=== PATIENT | male | born 1965 | race Two or more races ===

== ENCOUNTER 2016-11-11 21:14 | Inpatient (IN) | payer SELFPAY ==
[2016-11-11] MEDS ORDERED: IPRATROPIUM/ALBUTEROL 3 ML DEYVIAL ONE (21:22)
--- NOTE | 2016-11-11 21:24 | EDPHY ---
H & P Time Seen by Provider: 11/11/16 21:23 HPI/ROS: Chief complaint. Shortness of breath HPI. 51-year-old male presents with shortness of breath. He has apparently had a cough for several days. He has been drinking alcohol regularly although apparently tonight he was with friends who were drinking and he was not drinking much alcohol as he was coughing. His friend notes that maybe he had a choking episode and then became much more short of breath. The patient tells me he has not had chest pain. He denies any past medical history. He says he does not take any medications. He says he is not allergic to any medications. When he got to triage he had a pulse oximeter of 36% on room air. Of course the patient was immediately brought back to room 1 ROS Constitutional. no fever/chills, no weakness Eyes. no problems with vision ENT. no sore throat, no nasal drainage Cardiovascular. no chest pain Respiratory. Shortness of breath and cough Abdominal. no abdominal pain, no nausea/vomiting, no diarrhea . no problems urinating MS. no calf pain/swelling, no neck/back pain, no joint pain Skin. no rash Lymph. no swollen glands Neuro. no headache, no dizziness, no difficulty walking or with speech Past Medical/Surgical History: Denies any past medical history Social History: Single nonsmoker and apparently no alcohol tonight Physical Exam: General Appearance: Alert well-developed male in severe respiratory distress with pulse ox about 80% on 100% mask Eyes: Pupils equal and round no pallor or injection. ENT, Mouth: Mucous membranes are moist. Respiratory: There are retractions. There is inspiratory expiratory rhonchi diffusely Cardiovascular: Regular rate and rhythm with tachycardia Gastrointestinal: Abdomen is soft and nontender, no masses, bowel sounds normal. Neurological: Awake and alert, sensory and motor exams grossly normal. Skin: Warm and dry, no rashes. Musculoskeletal: Neck is supple nontender. Extremities symmetrical, full range of motion. Psychiatric: Patient is oriented X 3, there is no agitation. Constitutional: Initial Vital Signs Heart Rate 109 H 11/11/16 21:32 Respiratory Rate 36 H 11/11/16 21:32 Blood Pressure 92/61 L 11/11/16 21:32 O2 Sat (%) 82 L 11/11/16 21:32 O2 Delivery Mode Non-Rebreather Mask O2 (L/minute) 15 Allergies/Adverse Reactions: No Known Allergies Allergy (Unverified 11/11/16 21:40) Home Medications: Medication Instructions Recorded NK [No Known Home Meds] 11/11/16 Medical Decision Making - Diagnostics EKG Interpretation: EKG interpreted by me shows sinus tachycardia normal intervals. Normal axis. There possibly is a early right bundle branch block. No significant ST elevation or depression. No arrhythmia. The rate is 108 Imaging Results: Chest x-ray one view interpreted by me shows bilateral infiltrates. Presumably pneumonia but possibly CHF Post intubation chest x-ray shows the endotracheal tube about 2 cm above the reggie Procedures: IV normal saline, 100% oxygen, monitor Respiratory therapy is contacted and place the patient on BiPAP. Albuterol nebs x2 through the BiPAP. Oxygen level on BiPAP is still about 80-81%. Rapid sequence intubation using etomidate 20 mg IV and succinylcholine 200 mg IV. There is quite a bit of bloody sputum in the back of the pharynx. This is suction. Cords are visualized however initially difficult to place the tip of the endotracheal tube between the cords. The patient was repositioned and suctioned and then on 2nd pass a 8 0 endotracheal tube is placed. Visualization of the passing through the cords.. Colorimetry shows good change. Breath sounds are equal by auscultation. Pulse oximeter slowly comes up but still remains in the low 80 Patient has episodes of hypotension. Treated with fluid challenge and initially with Levophed. Pressure does seem to be quite labile and then normalizes and the Levophed is taper down. Patient is initially kept sedated with Versed and then when pressure permits put on a propofol drip. After blood cultures are obtained patient is given both IV Rocephin and Levaquin for pneumonia and possible aspiration pneumonia I consulted and discussed case with Dr. Vincent, hospitalist, who sees the patient in the emergency department We agree that the patient requires a central line so Dr. Johnson surgeon is consulted who is in the hospital and comes to the department to place a central line. ED Course/Re-evaluation: Serial evaluations and close in room observation. At 10:40 p.m. patient's blood pressure is 156/92 with heart rate 124. Patient is on ventilator Differential Diagnosis: Patient has an elevated troponin. He has an elevated B It sounds like the patient has really only had a cough the last couple days. He told me he had no chest pain. I have considered acute coronary syndrome, congestive heart failure , pneumonia including aspiration pneumonia. He has a markedly elevated lactate and certainly a concern is for sepsis. He continues to be hypoxic even with intubation and good sedation. It is a confusing history as the patient initially had told me that he really had been well the last couple days and only developed shortness of breath tonight. Critical Care Time: Critical care time exclusive procedures 1 hour - Data Points Laboratory Results: Laboratory Results 11/11/16 21:25 11/11/16 21:25 11/11/16 11/11/16 11/11/16 21:25 21:25 21:25 WBC RBC Hgb Hct MCV MCH MCHC RDW Plt Count MPV Neut % (Auto) Lymph % (Auto) Summers % (Auto) Eos % (Auto) Baso % (Auto) Nucleat RBC Rel Count Absolute Neuts (auto) Absolute Lymphs (auto) Absolute Monos (auto) Absolute Eos (auto) Absolute Basos (auto) Absolute Nucleated RBC Immature Gran % Immature Gran # Platelet Estimate Pending Smear Review By PT 16.0 SEC H SEC (12.0-15.0) INR 1.28 H (0.83-1.16) APTT 37.1 SEC SEC (23.0-38.0) D-Dimer 6.71 ug/mLFEU H ug/mLFEU (0.00-0.50) VBG Lactic Acid Sodium 132 mEq/L L mEq/L (134-144) Potassium 4.6 mEq/L mEq/L (3.5-5.2) Chloride 94 mEq/L L mEq/L (97-110) Carbon Dioxide 23 mEq/l mEq/l (22-31) Anion Gap 15 mEq/L mEq/L (8-16) BUN 34 mg/dL H mg/dL (7-23) Creatinine 2.2 mg/dL H mg/dL (0.7-1.3) Estimated GFR 32 Glucose 140 mg/dL H mg/dL (70-100) Calcium 7.9 mg/dL L mg/dL (8.5-10.4) Total Bilirubin 1.2 mg/dL mg/dL (0.1-1.4) Troponin I 0.064 ng/mL H ng/mL (0-0.034) NT-Pro-B Natriuret Pep 1930 pg/mL H pg/mL (0-125) 11/11/16 11/11/16 21:25 21:25 WBC 6.09 10^3/uL 10^3/uL (3.80-9.50) RBC 5.76 10^6/uL 10^6/uL (4.40-6.38) Hgb 19.2 g/dL H g/dL (13.7-17.5) Hct 57.0 % H % (40.0-51.0) MCV 99.0 fL fL (81.5-99.8) MCH 33.3 pg pg (27.9-34.1) MCHC 33.7 g/dL g/dL (32.4-36.7) RDW 14.8 % % (11.5-15.2) Plt Count 144 10^3/uL L 10^3/uL (150-400) MPV 12.8 fL H fL (8.7-11.7) Neut % (Auto) Not Reported Lymph % (Auto) Not Reported Summers % (Auto) Not Reported Eos % (Auto) Not Reported Baso % (Auto) Not Reported Nucleat RBC Rel Count 1.5 % H % (0.0-0.2) Absolute Neuts (auto) Not Reported Absolute Lymphs (auto) Not Reported Absolute Monos (auto) Not Reported Absolute Eos (auto) Not Reported Absolute Basos (auto) Not Reported Absolute Nucleated RBC 0.09 10^3/uL H 10^3/uL (0-0.01) Immature Gran % Not Reported Immature Gran # Not Reported Platelet Estimate ADEQUATE (ADEQ) Smear Review By Pending PT INR APTT D-Dimer VBG Lactic Acid 7.5 mmol/L H mmol/L (0.7-2.1) Sodium Potassium Chloride Carbon Dioxide Anion Gap BUN Creatinine Estimated GFR Glucose Calcium Total Bilirubin Troponin I NT-Pro-B Natriuret Pep Departure - Departure Disposition: [facility] Clinical Impression: Elevated troponin Sepsis Qualifiers: Sepsis type: sepsis due to unspecified organism Qualified Code(s): A41.9 - Sepsis, unspecified organism Pneumonia Qualifiers: Pneumonia type: due to unspecified organism Condition: Critical
--- NOTE | 2016-11-11 21:25 | CPEKG ---
Heart Rate: 108 RR Interval: 556 P-R Interval: 180 QRSD Interval: 138 QT Interval: 372 QTC Interval: 499 P [place]: 187 QRS [place]: -18 T Wave [place]: 53 EKG Severity - ABNORMAL ECG - EKG Impression: ECTOPIC ATRIAL TACHYCARDIA EKG Impression: RIGHT BUNDLE BRANCH BLOCK EKG Impression: INFERIOR INFARCT, AGE INDETERMINATE EKG Impression: LATERAL INFARCT, OLD Electronically Signed By: Billy Cheema 11-Nov-2016 23:15:21
[2016-11-11] MEDS ORDERED: NITROGLYCERIN/D5W 50 MG/250 ML BOTTLE IV ONE (21:32)
[2016-11-11] MEDS ORDERED: FUROSEMIDE 40 MG/4 ML VIAL IVP ONE (21:34)
[2016-11-11] MEDS ORDERED: NITROGLYCERIN/DEXTROSE 250 ML IV ONE (21:34)
[2016-11-11] MEDS ORDERED: ALBUTEROL 3 ML DEYVIAL ONE (21:41)
[2016-11-11] MEDS ORDERED: NOREPINEPHRINE/NS 4 MG/500 ML BAG IV ONE (21:52)
[2016-11-11 21:53] LABS: ABSOLUTE NRBC COUNT 0.09 10^3/uL (0-0.01); ADD SCAN? YES; ATYPICAL LYMPHOCYTE FLAG 0 (0-99); FRAGMENT RBC FLAG 0 (0-99); HEMOGLOBIN 19.2 g/dL (13.7-17.5); LIPEMIA HEMOLYSIS FLAG 80 (0-99); MEAN CELL HEMOGLOBIN 33.3 pg (27.9-34.1); MEAN CELL HEMOGLOBIN CONCENTR. 33.7 g/dL (32.4-36.7); MEAN PLATELET VOLUME 12.8 fL (8.7-11.7); PLATELET CLUMPS FLAG 10 (0-99); PLATELET COUNT 144 10^3/uL (150-400); RED BLOOD CELL COUNT 5.76 10^6/uL (4.40-6.38); RED CELL DISTRIBUTION WIDTH 14.8 % (11.5-15.2)
[2016-11-11 21:54] LABS: ANION GAP 15 mEq/L (8-16); BILIRUBIN,TOTAL 1.2 mg/dL (0.1-1.4); CALCIUM 7.9 mg/dL (8.5-10.4); CARBON DIOXIDE 23 mEq/l (22-31); CHLORIDE 94 mEq/L (97-110); CREATININE 2.2 mg/dL (0.7-1.3); GLOMERULAR FILTRATION RATE 32; GLUCOSE 140 mg/dL (70-100); LEFT SHIFT FLG 260 (0-99); NRBC-AUTO% 1.5 % (0.0-0.2); POTASSIUM 4.6 mEq/L (3.5-5.2); SODIUM 132 mEq/L (134-144)
[2016-11-11] MEDS ORDERED: ONDANSETRON 4 MG/2 ML VIAL ONE (22:02)
[2016-11-11] MEDS ORDERED: MIDAZOLAM 2 MG/2 ML VIAL ONE ×2 (22:05→23:28)
[2016-11-11 22:06] LABS: TROPONIN I 0.064 ng/mL (0-0.034)
[2016-11-11] MEDS ORDERED: CEFTRIAXONE 1 GM/DEXTROSE/50 ML BAG IV ONE (22:08)
[2016-11-11 22:15] LABS: INR 1.28 (0.83-1.16)
[2016-11-11 22:16] LABS: APTT 37.1 SEC (23.0-38.0)
[2016-11-11] MEDS ORDERED: NS 2,400 ML IV ONE (22:18)
[2016-11-11 22:26] LABS: ADD DIFF? YES; ADD MORPH? NO
[2016-11-11 22:30] LABS: BASE EXCESS -10.2 mEq/L (-2.5-2.5); BICARBONATE 19 mEq/L (22-26); MEASURED OXYGEN SATURATION 85 % (92-95); PCO2 54 mmHg (34-38); PO2 68 mmHg (65-75); TCO2 21 mEq/L (23-27)
[2016-11-11 22:34] LABS: ASSIST CONTROL YES
[2016-11-11 22:35] LABS: O2 CONCENTRATIION 100 % (0-100); P/F RATIO 68 RATIO
[2016-11-11 22:41] LABS: LACGHOST ORDER
[2016-11-11] MEDS ORDERED: ONDANSETRON 4 MG/2 ML VIAL IVP PRN (22:47)
[2016-11-11] MEDS ORDERED: ACETAMINOPHEN 325 MG TAB PO PRN (22:47)
[2016-11-11 22:48] LABS: SCAN POSITIVE
[2016-11-11] MEDS ORDERED: fentaNYL 100 MCG/2 ML INJ IVP ONE (22:50)
[2016-11-11] MEDS ORDERED: PROPOFOL/EMULSION 1,000 MG/100 ML BOTTLE IV ONE (22:53)
--- NOTE | 2016-11-11 22:53 | PDGENHP ---
History and Physical History and Physical: HISTORY AND PHYSICAL CC:Shortness of breath HISTORY: By the time I got to see the patient in the ER he was too short of breath be able to talk and give a history. Close friend of his who is at the bedside with him. The friend tells me that the patient was heard to be having difficulty breathing at the house where he is living. The friend and the owner spa director of the house called paramedics and had a true patient transported here to the ER. He apparently arrived here with oxygen saturation of 38% on Oxygen. He denied any chest pain or fever symptoms. It sounds like his shortness of breath started just this evening. He has had no pain in his legs according to the ER staff. He I am unable to get any other history from the patient himself. The friend who is here with him last saw him 2 weeks ago but says that he is aware that the patient has been working every day at his [employer] job. The patient reports no history of smoking in his lifetime. He reportedly drinks 6 beers most days but did not have any alcohol today. As best I can tell there are no symptoms of any other preceding illness. He apparently has not seen a doctor for years and does not take any medicines but is felt to be healthy by his friend. ROS: A comprehensive 10 system review is attempted through the friend but difficult ; it revealed no other significant findings PAST MEDICAL HISTORY: no known medical history per his friend FAMILY MEDICAL HISTORY: unknown. His family lives in [place] SOCIAL HISTORY: he has [place] but has been in this area for 20 years and has not been [place] during that time. 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 Apparently he has never smoked but does drink approximately 6 beers most days. is unclear to me exactly what his Fijian language skills are. As I entered the room there is a cad drafter there who told me that the patient did not speak Fijian. However his close friend at the bedside tells me that he understands Fijian. I did not ask if he actually speaks Fijian. It is unclear how well he understands spoken Fijian. However he was able to shake his head yes and no as we spoke to him through cbx operator regarding questions for intubation. MEDICATIONS: As best I can tell he takes no medicines and we are unaware of allergies per se PHYSICAL EXAMINATION: Vital Signs: his initial blood pressure 92/61 associated with a pulse of 109 and he was still with very rapid and labored respirations. He initially had some improvement in blood pressure with fluids but as I entered the room to visit him in the ER his blood pressure was at 62/41. He initially did not have any fever but eventually as we got a central probe via Calderon catheter he had a 38 degree temperature. in the ER we did start some Levophed which brought the pressure up. He was then intubated and subsequently were able to get him off of the Levophed in the ER. Facepiece Line Supervisor: sinus tachycardia Examination: General: Initially alert, oriented and in obvious respiratory distress Skin: cold clammy and cyanotic HEENT: normal, no evidence of upper airway obstruction or stridor Neck: no mass; unable to accurately determine JVD by a visual exam due to obesity but it appears that he has JVD Resps: very labored Lungs: diffuse fine rales Heart: tachycardic, difficult to hear, regular, no murmur audible Abdomen: soft, nondistended, +BS, no mass Upper Extremities: normal Lower Extremities: no edema No Bleeding or bruising Neurologic: normal speech/language, 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, no focal weakness IV site: looks normal LABORATORY DATA: Lactate 7.5 creatinine 2.2 pH 7.18 and pCO2 52 on mechanical ventilator for nearly 30 minutes hemoglobin 19 Troponin 0.06 BNP 1900+ Calderon catheter was placed in the ER and is draining somewhat cloudy but yellow urine no sign of bleeding RADIOLOGY STUDIES: chest x-ray #1, my interpretation of image: Severe bilateral alveolar opacities are diffuse cardiac silhouette possibly mildly enlarged ; this x-rays done before he got any IV fluids Chest x-ray #2, taken after intubation, my interpretation: ET tube in proper position with no evidence of complication of placement Chest x-ray #3, taken after central line and NG tube placement, my interpretation: Central line in proper position with no evidence of pneumothorax or other complication, NG tube appears to be in proper position with the tip well below the diaphragm 12 lead EKG, my interpretation of the tracing sinus rhythm without a evidence of ischemia Echocardiogram was done in the ER in my presence, I reviewed the images with the radio/tv technician but has not been read by Cardiology yet: My interpretation is that he has good appearing LV function with normal appearing cardiac dimensions of right and left ventricle and no sign of right ventricular dysfunction or pulmonary hypertension, no significant valvular dysfunction ASSESSMENT: 1- acute hypoxemic and hypercarbic respiratory failure 2- Probable community-acquired pneumonia but uncertain cause of diffuse bilateral pulmonary infiltrates 3- Acute septic shock with organ failure 4- Acute renal failure is suspected though baseline renal function unknown ; he is making urine 5- Elevated D-dimer of uncertain significance. At this time my clinical suspicion for PE is low but it is reasonable to look for DVT in his legs. He will not do CT with his current renal function 6- erythrocytosis with hemoglobin 19; this could be polycythemia vera ; he has never been a smoker and has no history of respiratory issues but he is obese and could potentially have obesity related pulmonary issues. Will want to check his right heart pressures when echocardiogram is formally read. 7- Chronic alcohol abuse at what sounds like possibly 6 beers per day last alcohol probably yesterday but uncertain PLANS: -cultures of blood and urine have been obtained and are pending -Antibiotics given in the ER included Rocephin and Levaquin; Will continue those for now -IV pressor support was started in the ER but were able to stop there, may need to potentially started again -Continue mechanical ventilation with proper protocols for use of that device along with sedation protocols -repeat blood gas in 1 hour -Trial of IV Lasix to see if this allows for better oxygenation -Doppler ultrasound of legs to rule out DVT -follow renal function closely ; if it does not appear to be rapidly resolving consider Nephrology consultation -Vitamin replacement with thiamin -Suspicion for acute cardiac event is low but will repeat a troponin to be sure it does not rise to unexpected levels -May need CIWA protocol -Follow his hemoglobin closely as well. If he does not have evidence of pulmonary hypertension on formal echo reading consider the potential that he has PCV I have reviewed the patient's case in detail with Dr.Mark Cheema and Luis urena
[2016-11-11] MEDS ORDERED: NS 500 ML IV PRN (22:57)
[2016-11-11] MEDS ORDERED: NOREPINEPHRINE/NS 500 ML IV SCH (23:00)
[2016-11-11] MEDS ORDERED: DEXMEDETOMIDINE HCL 400 MCG in NS 100 ML IV SCH (23:00)
[2016-11-11] MEDS ORDERED: fentaNYL/NACL 100 ML IV SCH (23:00)
[2016-11-11 23:01] LABS: PLATELET ESTIMATE ADEQUATE (ADEQ)
[2016-11-11 23:03] LABS: MACROCYTES 1+; POLYCHROMASIA 1+
[2016-11-11] MEDS ORDERED: PROPOFOL/EMULSION 100 ML IV SCH (23:05)
[2016-11-11] MEDS ORDERED: fentanYL/NACL/100 ML BAG IV ONE (23:14)
--- NOTE | 2016-11-11 23:19 | GOP ---
[f rep st] OPERATIVE REPORT DATE OF OPERATION: SURGEON: Imer Johnson MD PREOPERATIVE DIAGNOSIS: Sepsis. POSTOPERATIVE DIAGNOSIS: Sepsis. PROCEDURE PERFORMED: Right internal jugular central line placement. FINDINGS: INDICATIONS: Patient is a 51-year-old male, who presents in septic shock, intubated, and n eeding pressors for blood pressure support. His physicians have requested a central line to be plac ed. DESCRIPTION OF PROCEDURE: The patient was positioned supine. Full gown, gloves, and sterile protoc ol were used. The right neck scrubbed with ChloraPrep, draped in the usual sterile fashion. Using ultrasound guidance, a single puncture was made over the course of the internal jugular vein, blood obtained, and a guidewire inserted. A dilator was placed and then a triple-lumen catheter inserted, not quite to the full length. This was sutured in place after all ports were aspirated of blood an d flushed with heparinized saline. A chest x-ray confirmed optimal placement of the line in the ext rapericardial superior vena cava. No pneumothorax. /[id number]/MODL
[2016-11-11] MEDS ORDERED: ETOMIDATE 40 MG/20 ML INJ ONE (23:28)
[2016-11-11] MEDS ORDERED: fentaNYL 100 MCG/2 ML INJ ONE (23:28)
[2016-11-11] MEDS ORDERED: SUCCINYLCHOLINE CHLORIDE*ANESTHESIA ONLY*200 MG/10 ML SYR IVP ONE (23:29)
[2016-11-11] MEDS ORDERED: VECURONIUM BROMIDE 10 MG VIAL ONE (23:29)
[2016-11-11 23:42] LABS: COLOR AMBER; LEUKOCYTE ESTERASE,URINE NEGATIVE (NEGATIVE); NITRITE,URINE NEGATIVE (NEGATIVE)
[2016-11-11] MEDS ORDERED: THIAMINE HCL 100 MG in NS 100 ML IV SCH (23:45)
[2016-11-12 00:05] LABS: GRANULAR CASTS 25-50 /lpf (0-1); HYALINE CASTS >182 /lpf (0-1); MUCUS 3+ /lpf (NONE-1+)
[2016-11-12 00:31] LABS: BASE EXCESS -11.2 mEq/L (-2.5-2.5); BICARBONATE 22 mEq/L (22-26); MEASURED OXYGEN SATURATION 81 % (92-95); PO2 66 mmHg (65-75); TCO2 24 mEq/L (23-27)
[2016-11-12] MEDS ORDERED: VECURONIUM BROMIDE 10 MG VIAL IV PRN ×2 (00:35→02:00)
[2016-11-12 00:37] LABS: ASSIST CONTROL YES; END TIDAL CO2 56; O2 CONCENTRATIION 100 % (0-100); P/F RATIO 66 RATIO; PCO2 72 mmHg (34-38)
[2016-11-12 00:58] LABS: PHENCYCLIDINE URINE BCH < 6 ng/ml (NEGATIVE); PHENCYCLIDINE URINE BCH NEGATIVE (NEGATIVE); TETRAHYDROCANNABINOL URINE < 5 ng/mL (NEGATIVE); TETRAHYDROCANNABINOL URINE NEGATIVE (NEGATIVE)
[2016-11-12] MEDS ORDERED: SODIUM BICARBONATE 50 MEQ/50 ML SYR ONE (00:58)
[2016-11-12] MEDS ORDERED: OSELTAMIVIR PHOSPHATE 75 MG CAP PO SCH (01:00)
[2016-11-12 01:12] LABS: MIXED VENOUS O2 SATURATION 40 % (65-75)
[2016-11-12] MEDS ORDERED: PROPOFOL/EMULSION 100 ML IV SCH (02:10)
[2016-11-12 02:13] LABS: ETHANOL URINE < 10 (NEGATIVE); ETHANOL URINE NEGATIVE (NEGATIVE)
[2016-11-12 02:18] LABS: MIXED VENOUS O2 SATURATION 33 % (65-75)
[2016-11-12 02:24] LABS: PCO2 VENOUS 93 mmHg (40-44); PO2 VENOUS 32 mmHg (35-40); TCO2 VENOUS 26 mEq/L (23-27); VEN MEASURED OXYGEN SATURATION 33 % (65-75)
[2016-11-12 02:26] LABS: PH VENOUS BLOOD 7.03 (7.31-7.42)
[2016-11-12] MEDS ORDERED: VECURONIUM BROMIDE 10 MG VIAL IVP ONE (02:30)
[2016-11-12] MEDS ORDERED: SODIUM BICARBONATE 150 MEQ in D5W 1,000 ML IV SCH (02:30)
[2016-11-12 02:43] VITALS: PULSE 87
[2016-11-12 02:44] LABS: ALANINE AMINOTRANSFERASE 180 IU/L (21-72); ALBUMIN 2.1 g/dL (3.5-5.0); ALKALINE PHOSPHATASE 51 IU/L (38-126); ANION GAP 12 mEq/L (8-16); ASPARTATE AMINOTRANSFERASE 414 IU/L (17-59); CALCIUM 6.7 mg/dL (8.5-10.4); CARBON DIOXIDE 20 mEq/l (22-31); CHLORIDE 102 mEq/L (97-110); CREATININE 2.2 mg/dL (0.7-1.3); GLOMERULAR FILTRATION RATE 32; GLUCOSE 188 mg/dL (70-100); POTASSIUM 4.4 mEq/L (3.5-5.2); SODIUM 134 mEq/L (134-144); TOTAL PROTEIN 5.1 g/dL (6.3-8.2)
[2016-11-12] MEDS ORDERED: ALBUMIN 5% 500 ML IV ONE (02:45)
[2016-11-12 02:55] LABS: TROPONIN I 0.081 ng/mL (0-0.034)
[2016-11-12] MEDS ORDERED: ATROPINE SULFATE 1 MG/10 ML SYR IVP ONE (03:00)
[2016-11-12] MEDS ORDERED: SODIUM BICARBONATE 50 MEQ/50 ML SYR IV ONE (03:00)
[2016-11-12] MEDS ORDERED: ALBUMIN 5% 500 ML BOTTLE IV ONE (03:03)
[2016-11-12 03:16] VITALS: BP 52/26; RESP 38; TEMP 97.7; O2SAT 85
[2016-11-12] MEDS ORDERED: CALCIUM CHLORIDE 1 GM/10 ML INJ IVP ONE (04:00)
[2016-11-12] MEDS ORDERED: AMIODARONE HCL 150 MG/3 ML VIAL IV ONE (04:00)
[2016-11-12 04:47] LABS: CALCULATED OXYGEN SATURATION 40 % (92-95)
--- NOTE | 2016-11-12 05:15 | GCON ---
[f rep st] CONSULTATION PULMONARY/CRITICAL CARE CONSULTATION. DATE OF CONSULTATION: 11/12/2016 REFERRING PHYSICIAN: Randy Vincent MD REASON FOR REFERRAL: Evaluation and management of hypoxemic and hypercapnic respiratory failure. HISTORY OF PRESENT ILLNESS: The patient is a 51-year-old gentleman who presented to the emergency d [facility] with a fairly brief history of just a few days of coughing and then marked dyspnea that apparently began this evening. 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 In the emergency department, he presented with an oxygen saturation of 38%. He denies any c hest pain or fevers. Due to refractory hypoxemia, he was intubated in the emergency department and transferred to the ICU, where he continued to have refractory hypoxemia, for which I was consulted e mergently. PAST MEDICAL HISTORY: No known past medical history. MEDICATIONS: None. SOCIAL HISTORY: The patient apparently drinks about 6 beers most days but had none today. He does not smoke. The patient is originally from [place] but has lived here for 20 years. His lives [facility]. 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 FAMILY HISTORY: Unknown. REVIEW OF SYSTEMS: Unobtainable. PHYSICAL EXAMINATION: GENERAL: The patient is intubated and sedated. VITAL SIGNS: His initial bl ood pressure was 180/65 with a heart rate of 75. His oxygen saturations were 82%. He is afebrile. CVP is 12. HEENT: Normocephalic and atraumatic. No icterus. NECK: No JVD. Trachea is midline. CHEST: He has basilar rales with bronchial breath sounds. CARDIAC: Regular rate and rhythm with out murmur. ABDOMEN: Soft, nontender. Bowel sounds are present. EXTREMITIES: No clubbing, cyano sis, or edema. NEURO: The patient is sedated and unresponsive. LABORATORY DATA: Blood gas at the time of my arrival showed a pH of 7.11 with a PO2 of 66, a CO2 of 72, and a bicarbonate of 24 on 100% oxygen with a PEEP of 15, tidal volume of 500, respiratory rate of 28. A chemistry group showed a sodium 132, a creatinine of 2.2, potassium 4.6, a BNP of 1930 an d a troponin of 0.06. His glucose was 140. Hemoglobin was 19.2, white blood count of 6.1, with 37% bands, platelet count was 144. D-dimer was 6.7 and INR was 1.3. Urinalysis showed 10-15 white blo od cells. Tox screen was negative. A chest x-ray showed bilateral dense alveolar infiltrates. Images reviewed by me. An electrocardiogram showed sinus tachycardia with no acute ischemic changes. An echocardiogram by unconfirmed report showed fairly good LV function with no significant right anna tricular dysfunction. ASSESSMENT: 1. Hypercapnic and hypoxemic respiratory failure. 2. Renal insufficiency, suspect acute. 3. Severe sepsis. The patient has acute respiratory failure, bandemia, and elevated lactate. Shortly after my arrival, an influenza swab came back positive for influenza A, H1N1. The patient w as placed on respiratory isolation. I further increased his PEEP and reduced his tidal volume to ac hieve a high PEEP lung protective strategy. Because of some variability in the patient's tidal volu mes, I also gave the patient vecuronium. Despite these measures, the patient's oxygen saturations r emained in the 70s. A repeat blood gas demonstrated a CO2 of 90 with pH of 7.03. The patient had s inus bradycardia that responded to atropine. The patient was then started on an epinephrine drip. He had an episode of atrial fibrillation with a rapid ventricular response for which he was cardiove rted successfully. He had highly labile blood pressure with systolic blood pressures anywhere from 50-110, and oxygen saturations between 60 and 90%. A bicarb drip was started and he was also given calcium and the epinephrine was titrated to try to improve heart rate and oxygenation. Due to the r efractory hypoxemia and hypercapnia, I consulted Dr. Joshua Russell, who was covering for the Cardiotho racic Surgery service. He we discussed options, which included having him come in to place the magnus ent on ECMO and then perhaps convert to a venovenous oxygenation here and then transferring to [facility], or transferring the patient directly to [place] to have the patient placed on bypass. We elected to arrange for emergent transfer with initiation of bypass at [place]. The flight team was called an d the patient was transferred out. Immediately prior to transfer the patient again developed atrial fibrillation, which responded to a single DC cardioversion, and the flight team was given 150 mg of amiodarone to be given en route. In addition to the above measures, I gave the patient 75 mg of Ta miflu and an additional gram of ceftriaxone. Total critical care time of 190 minutes of direct patient contact by me, managing this critically il l and unstable patient continuously. /[id number]/MODL
[2016-11-12] MEDS ORDERED: AMIODARONE HCL 150 MG/3 ML VIAL ONE (05:49)
[2016-11-12] MEDS ORDERED: EPINEPHrine 1 MG/10 ML SYR IVP ONE (05:49)
[2016-11-12] MEDS ORDERED: ATROPINE SULFATE 1 MG/10 ML SYR ONE (05:49)
[2016-11-12] MEDS ORDERED: CALCIUM CHLORIDE 1 GM/10 ML INJ ONE (05:49)
[2016-11-12] MEDS ORDERED: HEPARIN 5,000 UNIT/0.5 ML SYR SC SCH (06:00)
[2016-11-12] MEDS ORDERED: FAMOTIDINE 20 MG/NACL 50 ML IV SCH (09:00)
--- NOTE | 2016-11-12 09:28 | ECHO ---
[id number] + + [address] : : [place] [address] : : [phone] + + Adult Echocardiographic Report + + :Name: Kristopher MONTANO Date: 11/11/2016 10:59 PM BP: 1 58/104 mmHg: : Hospital Admission Number: [id number] : :: 1965 Gender: Male : :Age: 51 yrs Race: OT : :Reason For Study: respiratory distress : :History: elev bnp : + + Left Ventricle The left ventricle is normal in size. There is mild to moderate concentric left ventricular hypertrophy. The left ventricle is hyperdynamic. Ejection Fraction = 75%. Right Ventricle The right ventricle is normal in size and function. Pericardium/Pleural There is no pericardial effusion. Conclusion STAT echocardiogram in ER to evaluate LV and RV function. 1. The left ventricle is normal in size. There is mild to moderate concentric left ventricular hypertrophy. The left ventricle is hyperdynamic. The Ejection Fraction = 75%. 2. The right ventricle is normal in size and function. Final Reading Physician: Jeet Donovan MD electronically signed on 11/12/2016 09:27 AM Ordering Physician: Randy Vincent Performed By: Carolina Wong
== END 2016-11-12 04:05 | disposition short-term general hospital (02) | DRG 871 ==
LOC: F2N 22:55
PROVIDERS: ADMIT Internal Medicine; ATTEND Internal Medicine Critical Care Medicine
PROC: 02HV33Z Insertion of Infusion Device into Superior Vena Cava, Percutaneous Approach (ICD-10-PCS; principal; 2016-11-11)
PROC: 0BH17EZ Insertion of Endotracheal Airway into Trachea, Via Natural or Artificial Opening (ICD-10-PCS; 2016-11-11)
PROC: 5A09357 Assistance with Respiratory Ventilation, Less than 24 Consecutive Hours, Continuous Positive Airway Pressure (ICD-10-PCS; 2016-11-11)
PROC: 0DH67UZ Insertion of Feeding Device into Stomach, Via Natural or Artificial Opening (ICD-10-PCS; 2016-11-11)
PROC: 5A2204Z Restoration of Cardiac Rhythm, Single (ICD-10-PCS; 2016-11-12)
DX: A41.89 Other specified sepsis (principal); R65.21 Severe sepsis with septic shock; J96.01 Acute respiratory failure with hypoxia; J96.02 Acute respiratory failure with hypercapnia; J09.X2 Influenza due to identified novel influenza A virus with other respiratory manifestations; N28.9 Disorder of kidney and ureter, unspecified; D75.1 Secondary polycythemia; E66.9 Obesity, unspecified; F10.10 Alcohol abuse, uncomplicated; I48.91 Unspecified atrial fibrillation; I45.10 Unspecified right bundle-branch block; Z68.32 Body mass index [BMI] 32.0-32.9, adult
CPT/HCPCS: 80307; 82947-QW; 96374; G0480; J0171; J0282; J0330; J0461; J0696; J1956; J2250; J2405; J2704; J3010; J3411; P9041